=== PATIENT | female | born 1995 | race Two or more races ===

== ENCOUNTER 2017-01-11 08:23 | Inpatient (IN) | payer OTHER ==
[2017-01-11 09:12] VITALS: BMI 26.5
[2017-01-11] MEDS ORDERED: OXYTOCIN IN NS 334 ML IV PRN (09:21)
[2017-01-11 10:20] LABS: HEMATOCRIT 36.6 % (37.0-47.0); HEMOGLOBIN 13.3 gm/l (12.0-16.0); MEAN CELL VOLUME 89.7 fl (81.0-99.0); MEAN CORPUSCULAR HEMOGLOBIN 32.6 pg (27.0-31.0); MEAN CORPUSCULAR HGB CONC 36.3 g/dl (33.0-37.0); RED CELL DISTRIBUTION WIDTH 12.7 % (11.5-14.5)
[2017-01-11] MEDS ORDERED: MINERAL OIL 25 ML BOT ONE (10:31)
[2017-01-11] MEDS ORDERED: LIDOCAINE Viscous 2% 15 ML UDCUP ONE (10:31)
[2017-01-11] MEDS ORDERED: OXYTOCIN 10 UNITS/ML VIAL ONE (10:31)
[2017-01-11] MEDS ORDERED: OXYTOCIN IN NS 500 ML IV ONE (10:31)
[2017-01-11] MEDS ORDERED: LIDOCAINE 1% (PRES FREE) 30 ML VIAL ONE (10:31)
[2017-01-11] MEDS ORDERED: BUTORPHANOL TARTRATE 1 MG/ML VIAL ONE (11:10)
[2017-01-11] MEDS ORDERED: BUTORPHANOL TARTRATE 1 MG/ML VIAL IV PRN (11:14)
[2017-01-11] MEDS ORDERED: METHYLERGONOVINE MALEATE 0.2 MG/ML 1ML AMP ONE (13:14)
[2017-01-11] MEDS ORDERED: METHYLERGONOVINE MALEATE 0.2 MG/ML 1ML AMP IM ONE (13:17)
--- NOTE | 2017-01-11 13:21 | PCMDEL ---
Delivery Note - Delivery Delivery (Date): 01/11/17 Gender: Female Presentation: Cephalic Position: OA Umbilical Cord: 3 Vessel Delayed Cord Clamping:: < 1-2 min 1 Minute Total: 9 5 Minute Total: 9 Placenta:: delivered complete with 3VC EBL:: 200cc Perineum:: midline episiotomy, no extension Suture:: 3-O Vicryl Anesthesia/Meds:: local Comments:: Pt progressed well and spontaneously to FD/100/+3 Pt pushed well; at perineum - perineum was tight and local lidocaine injection applied. With pt's consent, midline episiotomy was cut. Subsequently baby delivered to RACHEAL. Shoulders delivered easily. Bulb suction applied to mouth and nares. Baby to abdomen. After brief delay, cord was clamped and cut. Cord bloods collected. Placenta delivered with uterine massage. MLE repaired with 3-O Vicryl. Pt then given methergine for mild uterine atony. EBL 200cc Baby F, 9/9 apgars.
[2017-01-11] MEDS ORDERED: OXYCODONE/ACETAMINOPHEN 5/325 MG TABLET PO PRN (14:01)
[2017-01-11] MEDS ORDERED: DOCUSATE SODIUM 100 MG CAPSULE PO PRN (14:01)
[2017-01-11] MEDS ORDERED: LACTATED RINGERS 1,000 ML IV PRN (14:01)
[2017-01-11] MEDS ORDERED: LANOLIN 50 APPLIC/7G TUBE TP PRN (14:01)
[2017-01-11] MEDS ORDERED: CALCIUM CARBONATE 500 MG TAB.CHEW PO PRN (14:01)
[2017-01-11] MEDS ORDERED: OXYTOCIN IN NS 167 ML IV PRN (14:01)
[2017-01-11] MEDS ORDERED: BENZOCAINE/MENTHOL 60 APPLIC/BOT TP PRN (14:01)
[2017-01-11] MEDS ORDERED: MAGNESIUM HYDROXIDE 30 ML UDCUP PO PRN (14:01)
[2017-01-11] MEDS ORDERED: SENNOSIDES 8.6 MG TABLET PO PRN (14:01)
[2017-01-11] MEDS ORDERED: IBUPROFEN 800 MG TABLET PO PRN (14:01)
[2017-01-11 19:36] VITALS: BP 117/69
== END 2017-01-11 23:59 | disposition still patient (30) | DRG 774 ==
LOC: FBCOUT 08:23 → FBC 08:28 → FBCOUT 09:14 → FBC 09:15
PROVIDERS: ADMIT Obstetrics & Gynecology; ATTEND Obstetrics & Gynecology
PROC: 10E0XZZ Delivery of Products of Conception, External Approach (ICD-10-PCS; principal; 2017-01-11)
PROC: 0W8NXZZ Division of Female Perineum, External Approach (ICD-10-PCS; 2017-01-11)
DX: O72.1 Other immediate postpartum hemorrhage (principal); Z37.0 Single live birth; Z3A.40 40 weeks gestation of pregnancy